=== PATIENT | female | born 1975 | race Caucasian/White ===

== ENCOUNTER 2017-10-20 09:22 | Emergency (ER) | payer OTHER | END 2017-10-20 10:00 | disposition home or self-care (01) | LOC: FTE 09:22 | DX: G56.02 Carpal tunnel syndrome, left upper limb (principal) | CPT/HCPCS: 99282; Z7502 ==

== ENCOUNTER 2017-11-28 13:45 | Outpatient (CLI) | payer OTHER | END 2017-11-28 15:15 | disposition home or self-care (01) | LOC: OBT 13:45 → L-D 13:45 → OBT 15:15 | DX: O47.1 False labor at or after 37 completed weeks of gestation (principal); O09.523 Supervision of elderly multigravida, third trimester; Z3A.37 37 weeks gestation of pregnancy | CPT/HCPCS: Z7500 ==

== ENCOUNTER 2017-12-21 11:28 | Inpatient (IN) | payer OTHER ==
[2017-12-21] MEDS ORDERED: OXYTOCIN 30 UNITS/LR 500 ML IV (13:30)
[2017-12-21] MEDS ORDERED: CARBOPROST 250 MCG INJ IM ×2 (13:30→21:30)
[2017-12-21] MEDS ORDERED: METHYLERGONOVINE 0.2 MG INJ IM ×2 (13:30→21:30)
[2017-12-21] MEDS ORDERED: MISOPROSTOL 200 MCG TAB PR ×2 (13:30→21:30)
[2017-12-21] MEDS ORDERED: OXYCODONE/ASPIRIN (4.88/325) TAB PO ×3 (13:30→21:30)
[2017-12-21] MEDS ORDERED: BUTORPHANOL 2 MG INJ IV (13:30)
[2017-12-21] MEDS ORDERED: LIDOCAINE 1% (MPF) 30 ML INJ INJ (13:30)
[2017-12-21] MEDS: LACTATED RINGER'S 1,000 ML IV ×2 (13:38→19:19)
[2017-12-21 14:34] LABS: ADD MAN DIFF? NO
[2017-12-21 14:36] LABS: WHITE BLOOD COUNT 9.8 10^3/ul (4.8-10.8)
[2017-12-21 14:36] LABS: BASOPHILS % 0.4 % (0.0-2.0); EOSINOPHILS # 0.1 10^3/ul (0.0-0.5); EOSINOPHILS % 0.7 % (0.0-7.0); HEMATOCRIT 38.4 % (37.0-47.0); HEMOGLOBIN 13.2 g/dl (12.0-16.0); LYMPHOCYTES # 2.1 10^3/ul (0.8-2.9); LYMPHOCYTES % 21.3 % (15.0-51.0); MEAN CORPUSCULAR HEMOGLOBIN 30.1 pg (29.0-33.0); MEAN CORPUSCULAR HGB CONC 34.4 g/dl (32.0-37.0); MEAN CORPUSCULAR VOLUME 87.5 fl (82.0-101.0); MEAN PLATELET VOLUME 11.7 fl (7.4-10.4); MONOCYTE # 0.5 10^3/ul (0.3-0.9); MONOCYTES % 5.5 % (0.0-11.0); NEUTROPHIL # 7.1 10^3/ul (1.6-7.5); NEUTROPHILS % 71.8 % (39.0-77.0); PLATELET COUNT 147 10^3/UL (140-415); RED BLOOD COUNT 4.39 10^6/ul (4.20-5.40); RED CELL DISTRIBUTION WIDTH 13.2 % (11.5-14.5)
[2017-12-21 14:49] LABS: INR 0.96; PROTIME 12.9 Sec (11.9-14.9)
[2017-12-21 14:55] LABS: PARTIAL THROMBOPLASTIN TIME 27.9 Sec (23.0-35.0)
[2017-12-21] MEDS: MISOPROSTOL 50 MCG CAPSULE PO (14:59)
[2017-12-21 17:02] LABS: HEPATITIS B SURFACE ANTIGEN NEGATIVE (NEGATIVE)
[2017-12-21] MEDS: OXYTOCIN 30 UNITS/LR 500 ML IV ×2 (19:55→22:18)
[2017-12-21] MEDS: IBUPROFEN 600 MG TAB PO (19:58)
[2017-12-21] MEDS ORDERED: LANOLIN 7 GM TUBE TOP (21:30)
[2017-12-21] MEDS ORDERED: ZOLPIDEM 5 MG TAB PO (21:30)
[2017-12-21 22:14] LABS: RAPID PLASMA REAGIN NONREACTIVE (NR)
[2017-12-22] MEDS: WITCH HAZEL/GLYCERIN PAD PR (00:37)
[2017-12-22] MEDS: BENZOCAINE 20% 56 ML SPRAY TOP (00:37)
[2017-12-22] MEDS: OXYTOCIN 30 UNITS/LR 500 ML IV (03:31)
[2017-12-22] MEDS ORDERED: BENZOCAINE 20% 56 ML SPRAY TOP (04:00)
[2017-12-22] MEDS ORDERED: OXYCODONE/ASPIRIN (4.88/325) TAB PO (04:00)
[2017-12-22] MEDS ORDERED: MISOPROSTOL 200 MCG TAB PR (04:00)
[2017-12-22] MEDS ORDERED: METHYLERGONOVINE 0.2 MG INJ IM (04:00)
[2017-12-22] MEDS ORDERED: ZOLPIDEM 5 MG TAB PO (04:00)
[2017-12-22] MEDS ORDERED: LANOLIN 7 GM TUBE TOP (04:00)
[2017-12-22] MEDS ORDERED: CARBOPROST 250 MCG INJ IM (04:00)
[2017-12-22] MEDS ORDERED: OXYTOCIN 30 UNITS/LR 500 ML IV (04:00)
[2017-12-22] MEDS ORDERED: WITCH HAZEL/GLYCERIN PAD PR (04:00)
[2017-12-22] MEDS: OXYCODONE/ASPIRIN (4.88/325) TAB PO (04:33)
[2017-12-22] MEDS: IBUPROFEN 600 MG TAB PO ×5 (06:24→23:58)
[2017-12-22 07:34] LABS: ADD MAN DIFF? NO
[2017-12-22 07:44] LABS: BASOPHIL # 0.1 10^3/ul (0.0-0.1); BASOPHILS % 0.4 % (0.0-2.0); EOSINOPHILS # 0.1 10^3/ul (0.0-0.5); HEMATOCRIT 34.7 % (37.0-47.0); HEMOGLOBIN 11.8 g/dl (12.0-16.0); LYMPHOCYTES # 3.1 10^3/ul (0.8-2.9); LYMPHOCYTES % 21.4 % (15.0-51.0); MEAN CORPUSCULAR HEMOGLOBIN 29.6 pg (29.0-33.0); MEAN CORPUSCULAR VOLUME 87.2 fl (82.0-101.0); MEAN PLATELET VOLUME 11.6 fl (7.4-10.4); MONOCYTE # 1.2 10^3/ul (0.3-0.9); MONOCYTES % 8.6 % (0.0-11.0); NEUTROPHIL # 9.7 10^3/ul (1.6-7.5); NEUTROPHILS % 68.1 % (39.0-77.0); PLATELET COUNT 135 10^3/UL (140-415); RED BLOOD COUNT 3.98 10^6/ul (4.20-5.40); RED CELL DISTRIBUTION WIDTH 13.3 % (11.5-14.5)
[2017-12-22 07:44] LABS: WHITE BLOOD COUNT 14.2 10^3/ul (4.8-10.8)
[2017-12-22 07:47] LABS: POSITIVE DIFF @See below
[2017-12-22] MEDS: SENNA/DOCUSATE NA (8.6MG/50MG) TAB PO ×2 (08:44→20:51)
[2017-12-22] MEDS: PRENATAL VITAMIN PO (08:44)
[2017-12-22] MEDS ORDERED: SENNA/DOCUSATE NA (8.6MG/50MG) TAB PO (09:00)
[2017-12-22] MEDS ORDERED: NON-FORMULARY/PATIENT OWN MED (Prenatal Vit No.124/Iron/FA (Prenatal Vitamin Tablet) 1 EAC PO (09:00)
[2017-12-23] MEDS: IBUPROFEN 600 MG TAB PO ×2 (06:12→12:00)
[2017-12-23] MEDS ORDERED: DIPHTH/TET/ACEL PERTUSS (ADULT) 0.5 ML VIAL IM* (09:00)
[2017-12-23] MEDS: PRENATAL VITAMIN PO (09:48)
[2017-12-23] MEDS: SENNA/DOCUSATE NA (8.6MG/50MG) TAB PO (09:48)
== END 2017-12-23 15:30 | disposition home or self-care (01) | DRG 807 ==
LOC: OBT 11:28 → L-D 11:28 → OBT 13:18 → L-D 13:00 → PP1 22:13
PROVIDERS: Obstetrics & Gynecology
PROC: 10E0XZZ Delivery of Products of Conception, External Approach (ICD-10-PCS; principal; 2017-12-21)
PROC: 3E0P7VZ Introduction of Hormone into Female Reproductive, Via Natural or Artificial Opening (ICD-10-PCS; 2017-12-21)
DX: O48.0 Post-term pregnancy (principal); Z37.0 Single live birth; Z3A.40 40 weeks gestation of pregnancy; O76 Abnormality in fetal heart rate and rhythm complicating labor and delivery; O36.8130 Decreased fetal movements, third trimester, not applicable or unspecified; O69.1XX0 Labor and delivery complicated by cord around neck, with compression, not applicable or unspecified
CPT/HCPCS: 76818; 85025; 85610; 85730; 86592; 86850; 86900; 86901; 87340; 90686; 99464